=== PATIENT | female | born 1980 | race Caucasian/White ===

== ENCOUNTER 2020-01-14 14:16 | Emergency (ER) | payer OTHER, SELFPAY ==
[2020-01-14 14:22] VITALS: BP 121/84; PULSE 101; RESP 16; TEMP 36.7; O2SAT 96; BMI 35.9
--- NOTE | 2020-01-14 14:28 | ED_ITS ---
HPI - Neuro Symptoms/Deficit General: Chief Complaint: Neuro Symptoms/Deficit Stated Complaint: r side face drooping Time Seen by Provider: 01/14/20 14:22 History of Present Illness: HPI Narrative: 39-year-old male presents with 2 days of drooping in her right eye she denies difficulty speech or swallowing she is not noticed any visual changes. No difficulty her hands or feet or gait. No previous history of strokes. She is diabetic. No history of coronary artery disease. Associated symptoms: Deny chest pain, malaise, nausea or vomiting Review of Systems Const: Denies: fever, chills, body aches, change in appetite, fatigue or malaise ENMT: Denies: throat pain, ear pain, nasal discharge or nasal congestion Card: Denies: chest pain, edema, shortness of breath on exertion or shortness of breath when lying down Resp: Denies: shortness of breath, productive cough or non-productive cough GI: Denies: abdominal pain, nausea, vomiting, vomiting blood, coffee grounds in vomit, diarrhea, constipation, bloating, blood in stool or black tarry stool : Denies: flank pain, difficulty urinating, painful urination, urinary frequency or urinary urgency Skin/Breast: Denies: rash or itching PFSH ED PFSH: Social History Smoking and tobacco status: never smoked Physical Exam Const: COMMON NORMALS: no apparent distress GENERAL APPEARANCE: cooperative and comfortable ORIENTATION/CONSCIOUSNESS: Yes awake, Yes oriented to person, Yes oriented to place and Yes oriented to time HENMT: COMMON NORMALS: normocephalic, head/scalp atraumatic, hearing grossly normal bilaterally, external ears normal, EAC's normal, TM's normal bilaterally, nasal mucous membranes and turbinates normal, moist oral mucous membranes and oropharynx normal HEAD & SCALP: normocephalic and atraumatic NOSE: nasal mucous membranes and turbinates normal EXTERNAL EAR: Yes external ears normal EXTERNAL AUDITORY CANAL: EAC's normal TYMPANIC MEMBRANE: TM's normal bilaterally Eye: COMMON NORMALS: PERRL, EOMs intact bilaterally, conjunctivae normal and no scleral icterus CONJUNCTIVA: Yes conjunctivae normal PUPIL: Yes PERRL Neck/C-Spine: COMMON NORMALS: full ROM, no lymphadenopathy, supple and no JVD Lymph: LYMPHATIC: no lymphadenopathy noted and no lymphedema noted Resp: COMMON NORMALS: normal respiratory effort, no retractions, no use of accessory muscles and clear to auscultation bilaterally AUSCULTATION: clear to auscultation bilaterally Cardio: COMMON NORMALS: no JVD, regular rate, regular rhythm and no murmurs RATE: regular rate RHYTHM: regular rhythm GI: COMMON NORMALS: soft to palpation and no hepatosplenomegaly AUSCULTATION: Yes normoactive bowel sounds PALPATION: Yes soft, No tender, No guarding and Yes no hepatosplenomegaly Extremity: COMMON NORMALS: normal to inspection, normal capillary refill, no clubbing, cyanosis or edema, no calf tenderness and no pedal edema Neuro: SENSORIUM/ORIENTATION: Yes oriented to person, Yes oriented to place and Yes oriented to time Skin: COMMON NORMALS: no rashes or lesions noted GENERAL SKIN EXAM: no rashes or lesions noted Course Vital Signs: Vital signs: Vital Signs Temperature 98.1 F 01/14/20 14:22 Pulse Rate 85 01/14/20 15:43 Respiratory Rate 16 01/14/20 15:43 Blood Pressure 113/71 01/14/20 15:43 Pulse Oximetry 95 01/14/20 15:43 MDM - Neuro Symptoms/Deficit MDM Narrative: Medical decision making narrative: CT is unremarkable patient is a very minimal deficit is mostly just a little bit of drooping in the eye and even that is difficult to perceive sensation in the face is normal her stroke score was just 1 for that it appears she more is 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 Should take aspirin daily and follow-up with her primary care doctor next week. Discharge Plan Discharge Patient Disposition: Home, Self-Care Clinical Impression: Barragan's palsy Condition: Stable Prescriptions: New Adult Aspirin Regimen 81 mg tablet,delayed release (DR/EC) 81 mg PO DAILY Qty: 30 RF: 0 No Action sucralfate 1 gram tablet 1 g PO QID RF: 0 omeprazole 40 mg capsule,delayed release(DR/EC) 40 mg PO DAILY RF: 0 Toujeo SoloStar U-300 Insulin 300 unit/mL (1.5 mL) insulin pen See Rx Instructions .ROUTE .COMPLEX RF: 0 Discharge Orders: Discharge Order (Routine); Ordered 01/14/20 Ordered By: Jamison Orozco Referrals: Vikram Onofre [Primary Care Provider] - Paige Patrick DO [Family Provider] - Discharge Diet: Usual diet Discharge Activity: Increase activity as tolerated Activity Restrictions/Additional Instructions: Follow-up with your primary care doctor for further evaluation including possibly advanced imaging. Discharge Date/Time: 01/14/20 15:43 Coding Level of Care Code ED Pin Inserter Regulator for Chg Fwd Exam Comprehensive
--- NOTE | 2020-01-14 14:36 | CT_ITS ---
WS: [id number] CT HEAD TECHNIQUE: Noncontrast CT of the head obtained from the skullbase to the vertex. CLINICAL INFORMATION: Right-sided facial weakness COMPARISON: December 20, 2017 DLP: 762.[address] scans at [facility] use at least one of these dose optimization techniques: automat ed exposure control; mA and/or kV adjustment per patient size (includes targeted exams where dose is matched to clinical indication); or iterative reconstruction. FINDINGS: No evidence of intracranial hemorrhage or mass effect. Ventricular system and basal cisterns are villalobos nt. No extra-axial fluid collections. No evidence of mass or mass effect. Normal gonzalez-white differen tiation. Paranasal sinuses and mastoid air cells are well aerated. .Normal visualized soft tissues. Attempted notification Jamison Orozco DO at 01/14/2020 2:[address]/CT head wo con* [id number] IMPRESSION: 1. No evidence of intracranial hemorrhage or mass effect. 2. No acute intracranial findings.
[2020-01-14 15:43] VITALS: BP 113/71; PULSE 85; RESP 16; O2SAT 95
== END 2020-01-14 15:43 | disposition home or self-care (01) ==
PROVIDERS: Emergency Provider Family Medicine; Family Provider Family Medicine; PCP Physician Assistant Medical
DX: G51.0 Bell's palsy (principal); E11.9 Type 2 diabetes mellitus without complications; Z79.4 Long term (current) use of insulin
CPT/HCPCS: 12345; 70450; 99281; 99283

== ENCOUNTER → 2021-08-05 08:46 | Outpatient (BNVA) | payer OTHER, SELFPAY | PROVIDERS: Family Provider Family Medicine; PCP Physician Assistant Medical; Referring Provider Physician Assistant; Visit Provider Internal Medicine | DX: E04.1 Nontoxic single thyroid nodule (principal); E03.8 Other specified hypothyroidism; E11.9 Type 2 diabetes mellitus without complications; E78.00 Pure hypercholesterolemia, unspecified; Z79.4 Long term (current) use of insulin | CPT/HCPCS: 99204 ==

== ENCOUNTER 2021-11-18 13:14 | Emergency (ER) | payer OTHER, MEDICARE, SELFPAY ==
[2021-11-18 13:19] VITALS: BP 143/93; PULSE 112; RESP 18; TEMP 36.6; O2SAT 96; BMI 30.8
--- NOTE | 2021-11-18 13:28 | XR_ITS ---
WS: [id number] Exam: XR chest 1V portable [id number] Date/Time of Exam: 11/18/2021 1:31 PM Reason For Exam: sob Comparison 12/20/2017. Findings: The lungs are clear and fully expanded. Costophrenic angles are sharp. No infiltrates. Bronchovascula r relief appears normal. Cardiac silhouette is unremarkable. Bony elements are intact. XR/XR chest 1V portable [id number] IMPRESSION: Unremarkable chest radiograph.
--- NOTE | 2021-11-18 13:29 | ECG_ITS ---
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 Measurements Intervals [place] Rate: 109 P: 59 KS: 135 QRS: 196 QRSD: 93 T: 60 QT: 335 QTc: 453 Interpretive Statements SINUS TACHYCARDIA PATTERN CONSISTENT WITH PULMONARY DISEASE POSSIBLE RIGHT VENTRICULAR HYPERTROPHY [SOME/ALL OF: PROMINENT R IN V1, LATE TRANSITION, RAD, ALYSSIA, SSS] Compared to ECG 04/24/2015 17:02:26 Sinus rhythm no longer present Electronically Signed On 11-18-2021 20:04:29 PRODUCT OPERATIONS ASSOCIATE by Vicente Lassiter M.D. [id number]
--- NOTE | 2021-11-18 13:35 | ED_ITS ---
HPI - Nausea/Vomiting/Diarrhea General: Chief complaint: Nausea/Vomiting/Diarrhea Stated complaint: N/V SOB Time Seen by Provider: 11/18/21 13:27 Source: patient Mode of arrival: ambulatory Limitations: no limitations History of Present Illness: 41-year-old states of the last 5 days been having nausea vomiting diarrhea last 5 days. She states that she feels dehydrated is not been able to keep anything down she had some slight shortness of breath. She denies any chest pain or fever. She denies any sick contacts she has some slight abdominal cramping she rates a 1 out of 10 denies any worsening improving factors Associated nausea: Yes Associated symtoms: Reports nausea; Denies chest pain, dysuria or headache(s) Review of Systems Const: Denies: fever(s), chills, body aches or change in appetite Eyes: Denies: blurry vision or eye discomfort ENMT: Denies: throat pain or dental pain Card: Denies: chest pain Resp: Reports: dyspnea GI: Reports: nausea and vomiting : Denies: dysuria Musc: Denies: neck pain or back pain Skin/Breast: Denies: rash Neuro: Denies: headache(s) Psych: Denies: depression Shay/Lymph: Denies: easy bruising All/Imm: Denies: urticaria PFSH ED PFSH: Medical History Seizures Tremor Type 2 diabetes mellitus Surgical History History of cholecystectomy Family History Father No problems noted. Mother Diabetes Heart problem Chronic kidney disease (CKD) Social History Second hand smoke exposure: No Smoking risk assessment/counseling performed?: Yes Alcohol intake: never Desire information about alcohol rehabilitation?: No Counseling given: No Desire information about substance/drug rehabilitation?: No Counseling given: No Adopted: No Caregiver/support person: No Lives independently: Yes Household members: spouse and children Housing: House Marital status: Number of children: 3 Number of grandchildren: 3 Highest education level completed: 9th Grade service: No Current occupational status: disabled Pets and animals: Yes History of recent travel: No Sexually active: No Current gender identity: Female Sheila/Confucianism: [employer]ar[employer] Special sheila needs: No Agree to transfusion: Yes Physical Exam Const: COMMON NORMALS: no acute distress, patient oriented x3 and healthy a ppearing HENMT: COMMON NORMALS: normocephalic and atraumatic HEAD & SCALP: normocephalic and atraumatic Eye: COMMON NORMALS: Equal, round and reactive pupils present and EOMs intact bilaterally PUPIL: Yes Equal, round and reactive pupils present Neck/C-Spine: COMMON NORMALS: full ROM and supple Chest: COMMONS NORMALS: normal inspection of the chest and normal palpation of entire chest wall Resp: COMMON NORMALS: normal respiratory effort, No retractions, No use of accessory muscles and clear to auscultation bilaterally AUSCULTATION: clear to auscultation bilaterally Cardio: COMMON NORMALS: regular rhythm and No murmurs present (Cardio) RATE: tachycardic RHYTHM: regular rhythm GI: COMMON NORMALS: Normal to inspection, nondistended, normoactive bowel sounds present, Soft to palpation, non-tender and no masses PALPATION: Yes Soft to palpation Extremity: COMMON NORMALS: normal to inspection and full ROM Neuro: COMMON NORMALS: patient oriented x3, moves all extremities and no focal motor deficits Psych: COMMON NORMALS: mental status grossly normal, Normal thought process present and cooperative THOUGHT PROCESS: Normal thought process present Skin: COMMON NORMALS: no rashes or lesions noted and no wounds GENERAL SKIN EXAM: no rashes or lesions noted Course Vital Signs: Vital signs: Vital Signs Temperature 97.8 F 11/18/21 13:19 Pulse Rate 108 H 11/18/21 20:35 Respiratory Rate 27 H 11/18/21 20:35 Blood Pressure 115/57 11/18/21 19:08 Pulse Oximetry 98 11/18/21 20:35 MDM - Nausea/Vomiting/Diarrhea Medical Decision Making Patient presents here with vomiting along with some abdominal pain CT scan did show duodenitis she has had some hyperglycemia here with slightly decreased CO2 no ketones no acidosis she did eat and drink while she was here and her glucose did escalate again. I offered admission since she had the vomiting along with the hyperglycemia she states that she feels improved and does not want to stay in the hospital we will start her on antibiotics for peptic ulcer disease along with PPI and some pain meds she is to follow-up with Dr. Hernandez and she is return to ER if worsening she understands agrees to plan. Lab Data : 11/18/21 14:30 11/18/21 18:07 Radiology Impressions Chest X-Ray 11/18/21 13:28 IMPRESSION: Unremarkable chest radiograph. Abdomen/Pelvis CT 11/18/21 19:14 IMPRESSION: Mild duodenitis. Correlate clinically for possible PUD. Laboratory Results WBC 9.4 10^3/uL (4.0-10.0) 11/18/21 14:30 RBC 4.68 10^6/uL (4.1-5.3) 11/18/21 14:30 Hgb 14.7 g/dL (11.5-15.3) 11/18/21 14:30 Hct 41.5 % (37.0-47.0) 11/18/21 14:30 MCV 88.7 fl (81-99) 11/18/21 14:30 MCH 31.4 pg (28.0-34.0) 11/18/21 14:30 MCHC 35.4 g/dL (30.0-36.0) 11/18/21 14:30 RDW 11.8 % (12.1-15.1) L 11/18/21 14:30 Plt Count 340 10^3/cmm (130-400) 11/18/21 14:30 MPV 9.9 fL (7.4-10.4) 11/18/21 14:30 Neut % (Auto) 52.1 % 11/18/21 14:30 Lymph % (Auto) 35.0 % 11/18/21 14:30 [place] % (Auto) 10.9 % 11/18/21 14:30 Eos % (Auto) 0.5 % 11/18/21 14:30 Baso % (Auto) 1.0 % 11/18/21 14:30 Neut # (Auto) 4.88 10^3/uL (1.8-7.7) 11/18/21 14:30 Lymph # (Auto) 3.3 10^3/uL (0.8-4.8) 11/18/21 14:30 [place] # (Auto) 1.0 10^3/uL (0.2-0.9) H 11/18/21 14:30 Eos # (Auto) 0.1 10^3/uL (0.0-0.8) 11/18/21 14:30 Baso # (Auto) 0.1 10^3/uL (0.0-0.1) 11/18/21 14:30 Nucleated RBC % (auto) 0 % 11/18/21 14:30 Nucleated RBCs # 0.0 /100WBC 11/18/21 14:30 Specimen Type Arterial 11/18/21 20:24 Sample Site Radial, left 11/18/21 20:24 ABG pH 7.52 (7.35-7.45) H 11/18/21 20:24 ABG pCO2 22.2 mmHg (35-45) L 11/18/21 20:24 ABG pO2 109.0 mmHg (80.0-100.0) H 11/18/21 20:24 ABG HCO3 18.2 mmol/L (22-26) L 11/18/21 20:24 ABG O2 Saturation 98.9 11/18/21 16:02 ABG Base Excess -2.6 mmol/L (-2.0-2.0) L 11/18/21 20:24 Piter Test Pos 11/18/21 20:24 A-a O2 Gradient 2.6 mmHg (5-10) L 11/18/21 16:02 Hematocrit 43.3 % (37-47) 11/18/21 20:24 Hgb O2 Saturation 97.1 % (95-100) 11/18/21 16:02 Carboxyhemoglobin 1.1 %THgb (0.4-20.1) 11/18/21 16:02 Methemoglobin 0.7 % (0.4-1.5) 11/18/21 16:02 Total Hemoglobin 14.0 g/dL (12-16) 11/18/21 16:02 Sodium 137.0 mmol/L (131-143) 11/18/21 16:02 Potassium 2.6 mmol/L (3.5-5.0) L 11/18/21 16:02 Glucose 262.0 mg/dL (70-115) H 11/18/21 16:02 Ionized Calcium 1.2 mmol/L (1.1-1.4) 11/18/21 16:02 O2 Delivery Device Room air 02/23/22 20:24 FiO2 21.0 % 11/18/21 16:[address] Stenographer ID Buttr 11/18/21 20:24 Sodium 129 mmol/L (136-145) L 11/18/21 18:07 Potassium 3.3 mmol/L (3.5-5.1) L 11/18/21 18:07 Chloride 97 mmol/L (98-107) L 11/18/21 18:07 Carbon Dioxide 16 mmol/L (22-29) L 11/18/21 18:07 Anion Gap 19.3 (5-19) H 11/18/21 18:07 BUN 6 mg/dL (6-20) 11/18/21 18:07 Creatinine 0.3 mg/dL (0.5-0.9) L 11/18/21 18:07 GFR Calculation 244.0 mL/min (90-130) H 11/18/21 18:07 Glucose 263 mg/dL (65-115) H 11/18/21 18:07 POC Glucose 231 mg/dL (70-110) H 11/18/21 20:24 Calculated Osmolality 275 mOsm/kg (285-295) L 11/18/21 18:07 Calcium 9.1 mg/dL (8.5-10.5) 11/18/21 18:07 Total Bilirubin 0.4 mg/dL (0.15-1.2) 11/18/21 14:30 AST 12 U/L (0-32) 11/18/21 14:30 ALT 14 U/L (0-33) 11/18/21 14:30 Alkaline Phosphatase 83 IU/L (35-105) 11/18/21 14:30 Total Protein 7.7 g/dL (6.6-8.7) 11/18/21 14:30 Albumin 4.6 g/dL (3.5-5.2) 11/18/21 14:30 Globulin 3.1 g/dL (1.3-4.6) 11/18/21 14:30 Lipase 37 U/L (13-60) 11/18/21 14:30 HCG, Qual Negative (Negative) 11/18/21 14:30 Urine Color Yellow (Yellow) 11/18/21 13:30 Urine Appearance Clear (CLEAR) 11/18/21 13:30 Urine pH 5 (5-7) 11/18/21 13:30 Ur Specific [place] 1.005 (1.005-1.030) 11/18/21 13:30 Urine Protein Neg (Negative) 11/18/21 13:30 Urine Glucose (UA) 4+ (Normal) H 11/18/21 13:30 Urine Ketones 1+ (Negative) H 11/18/21 13:30 Urine Blood Neg (Negative) 11/18/21 13:30 Urine Nitrate Negative (Negative) 11/18/21 13:30 Urine Bilirubin Neg (Negative) 11/18/21 13:30 Urine Urobilinogen Neg mg/dL (Negative) 11/18/21 13:30 Ur Leukocyte Esterase Negative (Negative) 11/18/21 13:30 Serum Ketones Negative (Negative) 11/18/21 14:30 EKG Data EKG 1: I personally reviewed and interpreted this EKG as follows: EKG interpretation date: 11/18/21 EKG interpretation time: 13:41 Interpretation: sinus tach hr [address] or t wave abnormalities qrs 93 qtc 399 EKG 2: I personally reviewed and interpreted this EKG as follows: EKG interpretation date: 11/18/21 EKG interpretation time: 13:41 Interpretation: snus tach hr [address] or t wave abnormalities qrs 93 qtc 399 Discharge Plan Discharge Patient Disposition: Home Clinical Impression: Duodenitis, Vomiting, Hyperglycemia Condition: Stable Prescriptions: New Protonix 40 mg tablet,delayed release (DR/EC) 40 mg PO DAILY Qty: 60 0RF ondansetron 4 mg tablet,disintegrating 4 mg PO Q6H PRN (Reason: nausea and vomiting) Qty: 14 0RF Naprosyn 500 mg tablet 500 mg PO BID PRN (Reason: pain) Qty: 20 0RF amoxicillin 875 mg tablet 875 mg PO BID Qty: 14 0RF No Action Trulicity 0.75 mg/0.5 mL pen injector 0.75 mg SUBCUT .WEEKLY 0RF atorvastatin 20 mg tablet 20 mg PO DAILY Qty: 90 3RF Rx Instructions: Take one tablet by mouth. levothyroxine 25 mcg tablet 25 mcg PO DAILY Qty: 120 3RF Rx Instructions: Take two tablets Tuesday thru Tuesday. One tablet thru Tuesday, one hour before any other medicine or food daily. omeprazole 40 mg capsule,delayed release(DR/EC) 40 mg PO DAILY 0RF Toujeo SoloStar U-300 Insulin 300 unit/mL (1.5 mL) insulin pen See Rx Instructions .ROUTE .COMPLEX 0RF Rx Instructions: 20 units subcutaneously qam and 40 units bedtime Adult Aspirin Regimen 81 mg tablet,delayed release (DR/EC) 81 mg PO DAILY Qty: 30 0RF Discharge Orders: Discharge ED (Routine); Ordered 11/18/21 Ordered By: Cassius Quintana Referrals: Srini Hernandez MD [Physician] - 1-3 days Vikram Onofre [Primary Care Provider] - Discharge Diet: Advance as tolerated Discharge Activity: Resume usual activity Patient Instructions: Diabetic Hyperglycemia (ED), Duodenitis (ED), Opioid Safety Coding Level of Care Code ED Paper Making Machine Operator for Lawandag Fwd Exam Comprehensive
[2021-11-18] MEDS: sodium chloride 0.9% 1,000 ML 999 ML IV (13:55)
[2021-11-18 14:54] LABS: Basophils # 0.1 10^3/uL (0.0-0.1); Eosinophils # 0.1 10^3/uL (0.0-0.8); Eosinophils % 0.5 %; Hematocrit 41.5 % (37.0-47.0); Hemoglobin 14.7 g/dL (11.5-15.3); Lymphocytes # 3.3 10^3/uL (0.8-4.8); Mean Corpuscular HGB Conc 35.4 g/dL (30.0-36.0); Mean Corpuscular Hemoglobin 31.4 pg (28.0-34.0); Mean Corpuscular Volume 88.7 fl (81-99); Mean Platelet Volume 9.9 fL (7.4-10.4); Monocytes % 10.9 %; Neutrophils # 4.88 10^3/uL (1.8-7.7); Neutrophils % 52.1 %; Nucleated Red Blood Cells % 0 %; Platelet Count 340 10^3/cmm (130-400); Red Blood Count 4.68 10^6/uL (4.1-5.3); Red Cell Distribution Width 11.8 % (12.1-15.1); White Blood Count 9.4 10^3/uL (4.0-10.0)
[2021-11-18 15:04] LABS: HCG, Serum Qual Negative (Negative)
[2021-11-18 15:18] LABS: Alanine Aminotransferase 14 U/L (0-33); Albumin Level 4.6 g/dL (3.5-5.2); Alkaline Phosphatase 83 IU/L (35-105); Anion Gap 18.4 (5-19); Aspartate Amino Transferase 12 U/L (0-32); Blood Urea Nitrogen 7 mg/dL (6-20); Calcium 9.5 mg/dL (8.5-10.5); Carbon Dioxide 18 mmol/L (22-29); Chloride 96 mmol/L (98-107); Globulin 3.1 g/dL (1.3-4.6); Glucose 447 mg/dL (65-115); Lipase 37 U/L (13-60); Osmolality Calculated 285 mOsm/kg (285-295); Potassium 3.4 mmol/L (3.5-5.1); Sodium 129 mmol/L (136-145); Total Bilirubin 0.4 mg/dL (0.15-1.2); Total Protein 7.7 g/dL (6.6-8.7)
[2021-11-18 15:36] LABS: Add Urine Microscopic? NO; Charge for UA Resulting for Rev
[2021-11-18] MEDS: lactated ringers 1,000 ML 999 ML IV ×3 (15:38→19:46)
[2021-11-18] MEDS: insulin regular-human 100 units/1 mL 10 UNIT IVP ×2 (15:38→19:46)
[2021-11-18 15:42] LABS: Ketone (Acetest) Serum Negative (Negative)
[2021-11-18 15:43] LABS: Glucose Point of Care 373 mg/dL (70-110)
[2021-11-18 15:52] LABS: Glucose Urine UA 4+ (Normal); Protein Urine Neg (Negative); Specific Gravity, Urine 1.005 (1.005-1.030); Urine Appearance Clear (CLEAR); Urine Color Yellow (Yellow); pH Urine 5 (5-7)
[2021-11-18 15:53] LABS: Bilirubin Urine Neg (Negative); Blood Urine Neg (Negative); Ketones Urine 1+ (Negative); Leukocyte Esterase Urine Negative (Negative); Nitrate Urine Negative (Negative); Urobilinogen Urine Neg (Negative)
[2021-11-18 15:58] LABS: Glucose Point of Care 339 mg/dL (70-110)
[2021-11-18 16:11] LABS: ABG PCO2 27.1 mmHg (35-45); ABG PH Result 7.47 (7.35-7.45); Alveolar-Arterial Oxygen Gradi 2.6 mmHg (5-10); Arterial Blood Gas Hematocrit 42.8 % (37-47); Base Excess ABG -2.3 mmol/L (-2.0-2.0); Blood Gas Allen Test Pos; Blood Gas Operator Identificat glc; Blood Gas Sample Site Radial, left; Blood Gas Sample Type Arterial; Carboxyhemoglobin 1.1 %THgb (0.4-20.1); HCO3 ABG 19.9 mmol/L (22-26); HGB O2 Sat 97.1 % (95-100); Ionized Calcium Level - ABG 1.2 mmol/L (1.1-1.4); Methemoglobin 0.7 % (0.4-1.5); Oxygen Device ROOM AIR; Oxygen Saturation ABG 98.9; PO2 ABG 95.9 mmHg (80.0-100.0); Potassium Level - ABG 2.6 mmol/L (3.5-5.0)
[2021-11-18] MEDS: potassium chloride ER 20 mEq Tablet 40 MEQ PO (16:42)
[2021-11-18] MEDS: ondansetron 2 mg/ML SDV 2 mL 4 MG IVP (16:43)
[2021-11-18 16:56] LABS: Glucose Point of Care 264 mg/dL (70-110)
[2021-11-18 17:22] VITALS: BP 115/57; PULSE 98; RESP 28; O2SAT 99
[2021-11-18 17:46] LABS: Glucose Point of Care 304 mg/dL (70-110)
[2021-11-18] MEDS: insulin regular-human 100 units/1 mL 5 UNIT IVP (17:50)
[2021-11-18 18:58] LABS: Glucose Point of Care 325 mg/dL (70-110)
[2021-11-18 18:59] LABS: Blood Urea Nitrogen 6 mg/dL (6-20); Calcium 9.1 mg/dL (8.5-10.5); Carbon Dioxide 16 mmol/L (22-29); Chloride 97 mmol/L (98-107); Glucose 263 mg/dL (65-115); Osmolality Calculated 275 mOsm/kg (285-295); Sodium 129 mmol/L (136-145)
[2021-11-18 19:02] LABS: Anion Gap 19.3 (5-19); Potassium 3.3 mmol/L (3.5-5.1)
[2021-11-18 19:08] VITALS: BP 115/57; PULSE 95; RESP 23; O2SAT 98
--- NOTE | 2021-11-18 19:14 | CTR_ITS ---
PROCEDURE INFORMATION: Exam: CT Abdomen And Pelvis With Contrast Exam date and time: 11/18/2021 7:14 PM Age: 41 years old Clinical indication: Nausea and vomiting; Abdominal pain; Localized; Left lower quadrant (llq); Prior surgery; Surgery type: Gb TECHNIQUE: Imaging protocol: Computed tomography of the abdomen and pelvis with contrast. Radiation optimization: All CT scans at this facility use at least one of these dose optimization techniques: automated exposure control; mA and/or kV adjustment per patient size (includes targeted exams where dose is matched to clinical indication); or iterative reconstruction. Contrast material: OMNI 300; Contrast volume: 95 ml; Contrast route: INTRAVENOUS (IV); COMPARISON: CR XR chest 1V portable [id number] 11/18/2021 1:35 PM RADIATION DOSE METRICS: Total DLP (mGy-cm): 1464.4 FINDINGS: Liver: Normal. No mass. Gallbladder and bile ducts: The gallbladder has been removed. No biliary ductal dilatation. Pancreas: Normal. No ductal dilation. Spleen: Normal. No splenomegaly. Adrenal glands: Normal. No mass. Kidneys and ureters: Normal. No hydronephrosis. Stomach and bowel: Mild wall thickening is seen in the 1st and 2nd portions of duodenum. No intestinal obstruction. Appendix: No evidence of appendicitis. Intraperitoneal space: Unremarkable. No free air. No significant fluid collection. Vasculature: Unremarkable. No abdominal aortic aneurysm. Lymph nodes: Unremarkable. No enlarged lymph nodes. Urinary bladder: Unremarkable as visualized. Reproductive: The uterus and ovaries appear normal. Bilateral Essure coils are in place. Bones/joints: Unremarkable. No acute fracture. Soft tissues: Unremarkable. CT/CT abdomen pelvis w con* [id number] IMPRESSION: Mild duodenitis. Correlate clinically for possible PUD.
[2021-11-18] MEDS: iohexol 300 mg/mL 100 mL Btl IV (19:39)
[2021-11-18 20:28] VITALS: RESP 21; O2SAT 97
[2021-11-18] MEDS: morphine 4 mg/mL SDV 1 mL IVP (20:28)
[2021-11-18 20:35] VITALS: PULSE 108; RESP 27; O2SAT 98
[2021-11-18 20:36] LABS: ABG PCO2 22.2 mmHg (35-45); ABG PH Result 7.52 (7.35-7.45); Arterial Blood Gas Hematocrit 43.3 % (37-47); Base Excess ABG -2.6 mmol/L (-2.0-2.0); Blood Gas Allen Test Pos; Blood Gas Sample Site Radial, left; Blood Gas Sample Type Arterial; HCO3 ABG 18.2 mmol/L (22-26); Oxygen Device ROOM AIR
[2021-11-18 20:38] LABS: Glucose Point of Care 231 mg/dL (70-110)
[2021-11-18 21:01] VITALS: BP 134/73; PULSE 102; RESP 16; O2SAT 95
--- NOTE | 2021-11-25 12:15 | DCPLANNER ---
Addendum entered by Yumiko Zurita 12/08/21 08:42: Patient had a follow up appointment scheduled with Dr. Hernandez - patient did not attend appointment. Original Note: contracting manager had message to schedule a follow up appointment for patient with Dr. Hernandez. contracting manager faxed patients information to the office of Dr. Hernandez. Patients information will be reviewed, clinic will call patient with appointment information.
== END 2021-11-18 21:06 | disposition home or self-care (01) ==
PROVIDERS: Physician Assistant; Emergency Provider Emergency Medicine; PCP Physician Assistant Medical
DX: K29.80 Duodenitis without bleeding (principal); E11.65 Type 2 diabetes mellitus with hyperglycemia; Z79.4 Long term (current) use of insulin; Z79.82 Long term (current) use of aspirin
CPT/HCPCS: 36415; 36416; 36600; 71045; 74177; 80048; 80051; 80053; 81003; 82009; 82330; 82803; 82805; 82962; 83690; 84703; 85025; 93005; 96361; 96374; 96375; 96376; 99285; J1815; J2270; J2405; J7030; Q9967

== ENCOUNTER → 2022-08-20 17:09 | Outpatient (BNVA) | payer OTHER, MEDICARE, SELFPAY | PROVIDERS: PCP Physician Assistant; Visit Provider Registered Nurse Neonatal Intensive Care | DX: R11.2 Nausea with vomiting, unspecified (principal); B34.9 Viral infection, unspecified | CPT/HCPCS: 87071; 87880 ==

== ENCOUNTER → 2025-05-17 11:36 | Outpatient (BNVA) | payer MEDICARE, OTHER, SELFPAY | PROVIDERS: PCP Physician Assistant; Referring Provider Nurse Practitioner Family; Visit Provider Internal Medicine | DX: E11.9 Type 2 diabetes mellitus without complications (principal); E04.1 Nontoxic single thyroid nodule; E55.9 Vitamin D deficiency, unspecified; E07.9 Disorder of thyroid, unspecified; E03.8 Other specified hypothyroidism; E16.2 Hypoglycemia, unspecified | CPT/HCPCS: 99204 ==